=== PATIENT | male | born 1970 | race Caucasian/White ===

== ENCOUNTER 2022-10-25 10:17 | Inpatient (IN) | payer MEDICARE ==
[~2022-10-25 10:17] MED LIST: Iopamidol 300 61% 100 ML VIAL FS ONE
[2022-10-25 11:27] LABS: #Basophils 0.2 10x3/uL (0.0-0.2); #Eosinphils 0.4 10x3/uL (0.0-0.5); #Monocytes 1.8 10x3/uL (0.0-1.1); #Neutrophils 12.6 10x3/uL (1.5-8.4); %Basophils 0.8 % (0.0-2.0); %Eosinophils 2.2 % (0.0-6.0); %Lymphocytes 13.2 % (18.0-47.0); %Neutrophils 71.4 % (40.0-75.0); Hematocrit 37.3 % (38.8-50.0); Hemoglobin 12.5 g/dL (13.5-17.5); Mean Corpuscular HGB CONC 33.5 g/dL (32.0-36.0); Mean Corpuscular Hemoglobin 24.1 pg (27.0-33.0); Mean Corpuscular Volume 71.9 fl (81.2-95.1); Platelet Count 788 10x3/uL (150-450); RBC Distribution Width 12.9 % (11.5-14.5); Red Blood Cell (RBC) Count 5.19 10x6/uL (4.32-5.72); White Blood Cell (WBC) Count 17.7 10x3/uL (3.5-10.5)
[2022-10-25 11:45] LABS: ALT (SGPT) 27 U/L (8-55); AST (SGOT) 21 U/L (5-34); Albumin 3.5 g/dL (3.5-5.0); Alkaline Phosphatase 34 U/L (40-110); Anion Gap 19 mmol/L (10-20); BUN (Urea Nitrogen) 12 mg/dL (8.9-20.6); Calc. Creatinine Clearance 0 mL/min (70-130); Calcium 8.7 mg/dL (7.8-10.44); Carbon Dioxide 22 mmol/L (22-29); Chloride 87 mmol/L (98-107); Estimated GFR 65; Globulin 2.9 g/dL (2.4-3.5); Glucose 131 mg/dL (70-105); Lipase 80 U/L (8-78); Protein, Total 6.4 g/dL (6.0-8.3); Sodium 124 mmol/L (136-145)
[2022-10-25] MEDS ORDERED: Promethazine HCl 25 MG in Sodium Chloride 0.9% 50 ML IVPB SCH (11:45)
[2022-10-25 11:47] LABS: Troponin I Less than 0.010 ng/mL (< 0.028)
[2022-10-25 12:03] LABS: Microcytosis SLIGHT = 6-15 cells (100X) (0-5/hpf); Ovalocytes SLIGHT = 2-5 cells (100X) (0-1/hpf); Platelet Adequacy Comment Appears Increased
[2022-10-25 16:46] LABS: Anion Gap 17 mmol/L (10-20); BUN (Urea Nitrogen) 11 mg/dL (8.9-20.6); Calc. Creatinine Clearance 0 mL/min (70-130); Calcium 8.1 mg/dL (7.8-10.44); Carbon Dioxide 21 mmol/L (22-29); Chloride 92 mmol/L (98-107); Estimated GFR 89; Glucose 92 mg/dL (70-105); Potassium 4.5 mmol/L (3.5-5.1); Sodium 125 mmol/L (136-145)
[2022-10-25] MEDS ORDERED: Acetaminophen 325 MG TAB PO PRN (16:53)
[2022-10-25] MEDS ORDERED: Ondansetron ODT 4 MG TAB PO PRN (16:53)
[2022-10-25] MEDS ORDERED: Promethazine 25 MG TAB PO PRN (17:09)
[2022-10-25] MEDS: Sodium Chloride 0.9% 1,000 ML IV SCH (18:28)
[2022-10-25] MEDS: cefTRIAXone\\ROCEPHIN 2 GM in Sodium Chloride 0.9% 100 ML IVPB SCH (18:28)
[2022-10-25 18:41] VITALS: BMI 21.2
[2022-10-25] MEDS: metroNIDAZOLE 500 MG in Premix Bag 1 BAG IVPB SCH (21:56)
[2022-10-26] MEDS: Sodium Chloride 0.9% 1,000 ML IV SCH ×3 (03:11→22:02)
[2022-10-26 04:06] LABS: #Basophils 0.1 10x3/uL (0.0-0.2); #Eosinphils 1.3 10x3/uL (0.0-0.5); #Monocytes 1.4 10x3/uL (0.0-1.1); #Neutrophils 4.8 10x3/uL (1.5-8.4); %Basophils 0.5 % (0.0-2.0); %Eosinophils 12.6 % (0.0-6.0); %Monocytes 13.2 % (0.0-10.0); %Neutrophils 46.7 % (40.0-75.0); Hematocrit 29.5 % (38.8-50.0); Hemoglobin 9.6 g/dL (13.5-17.5); Mean Corpuscular HGB CONC 32.5 g/dL (32.0-36.0); Mean Corpuscular Hemoglobin 24.1 pg (27.0-33.0); Mean Corpuscular Volume 73.9 fl (81.2-95.1); Mean Platelet Volume 8.8 fl (7.4-10.4); Platelet Count 621 10x3/uL (150-450); Red Blood Cell (RBC) Count 3.99 10x6/uL (4.32-5.72); White Blood Cell (WBC) Count 10.2 10x3/uL (3.5-10.5)
[2022-10-26 04:10] LABS: ALT (SGPT) 16 U/L (8-55); AST (SGOT) 13 U/L (5-34); Albumin 2.6 g/dL (3.5-5.0); Alkaline Phosphatase 23 U/L (40-110); Anion Gap 14 mmol/L (10-20); BUN (Urea Nitrogen) 10 mg/dL (8.9-20.6); Bilirubin, Total 0.5 mg/dL (0.2-1.2); Calc. Creatinine Clearance 102 mL/min (70-130); Calcium 7.6 mg/dL (7.8-10.44); Carbon Dioxide 21 mmol/L (22-29); Chloride 96 mmol/L (98-107); Estimated GFR 95; Globulin 2.5 g/dL (2.4-3.5); Glucose 78 mg/dL (70-105); Potassium 3.3 mmol/L (3.5-5.1); Protein, Total 5.1 g/dL (6.0-8.3); Sodium 128 mmol/L (136-145)
[2022-10-26] MEDS: metroNIDAZOLE 500 MG in Premix Bag 1 BAG IVPB SCH ×3 (05:57→22:02)
[2022-10-26 08:26] LABS: Sodium 129 mmol/L (136-145)
[2022-10-26] MEDS: Pantoprazole 40 MG VIAL IVP SCH (10:12)
[2022-10-26] MEDS ORDERED: Meclizine HCl 25 MG TAB PO PRN (11:26)
[2022-10-26] MEDS ORDERED: Electrolyte Replacement Protocol 1 EACH FS SCH (13:15)
[2022-10-26] MEDS: methylPREDNISolone Sod Succ 40 MG VIAL IVP SCH ×2 (13:38→22:03)
[2022-10-26] MEDS ORDERED: Potassium Chloride 20 MEQ TAB PO SCH (14:00)
[2022-10-26] MEDS: Potassium Chloride 20 MEQ in Premix Bag 1 BAG IVPB SCH ×2 (14:04→16:13)
[2022-10-26 15:31] LABS: Campy jejuni + coli by PCR Negative (Negative); STEC Shiga Toxin 1+2 Negative (Negative); Salmonella spp. by PCR Negative (Negative); Shigella spp + EIEC by PCR Negative (Negative)
[2022-10-26] MEDS: cefTRIAXone\\ROCEPHIN 2 GM in Sodium Chloride 0.9% 100 ML IVPB SCH (16:16)
[2022-10-26 22:24] LABS: Potassium 4.1 mmol/L (3.5-5.1)
[2022-10-27] MEDS: metroNIDAZOLE 500 MG in Premix Bag 1 BAG IVPB SCH ×3 (04:34→21:25)
[2022-10-27] MEDS: methylPREDNISolone Sod Succ 40 MG VIAL IVP SCH ×5 (04:34→21:25)
[2022-10-27 04:40] LABS: Anion Gap 13 mmol/L (10-20); BUN (Urea Nitrogen) 11 mg/dL (8.9-20.6); Calc. Creatinine Clearance 131 mL/min (70-130); Calcium 7.9 mg/dL (7.8-10.44); Carbon Dioxide 19 mmol/L (22-29); Chloride 100 mmol/L (98-107); Estimated GFR 110; Glucose 136 mg/dL (70-105); Potassium 4.4 mmol/L (3.5-5.1); Sodium 128 mmol/L (136-145)
[2022-10-27 04:43] LABS: #Monocytes 0.3 10x3/uL (0.0-1.1); #Neutrophils 6.9 10x3/uL (1.5-8.4); %Basophils 0.3 % (0.0-2.0); %Eosinophils 0.3 % (0.0-6.0); %Lymphocytes 16.7 % (18.0-47.0); %Monocytes 3.2 % (0.0-10.0); %Neutrophils 77.1 % (40.0-75.0); Hematocrit 28.3 % (38.8-50.0); Hemoglobin 9.3 g/dL (13.5-17.5); Mean Corpuscular HGB CONC 32.9 g/dL (32.0-36.0); Mean Corpuscular Hemoglobin 24.3 pg (27.0-33.0); Mean Corpuscular Volume 73.9 fl (81.2-95.1); Mean Platelet Volume 8.9 fl (7.4-10.4); Platelet Count 592 10x3/uL (150-450); RBC Distribution Width 13.1 % (11.5-14.5); Red Blood Cell (RBC) Count 3.83 10x6/uL (4.32-5.72)
[2022-10-27] MEDS: Pantoprazole 40 MG VIAL IVP SCH (09:29)
[2022-10-27] MEDS: Sodium Chloride 0.9% 1,000 ML IV SCH ×2 (09:37→21:25)
[2022-10-27] MEDS: cefTRIAXone\\ROCEPHIN 2 GM in Sodium Chloride 0.9% 100 ML IVPB SCH (18:37)
[2022-10-28 04:16] LABS: Anion Gap 11 mmol/L (10-20); BUN (Urea Nitrogen) 10 mg/dL (8.9-20.6); Calc. Creatinine Clearance 140 mL/min (70-130); Calcium 7.5 mg/dL (7.8-10.44); Carbon Dioxide 17 mmol/L (22-29); Chloride 103 mmol/L (98-107); Estimated GFR 112; Glucose 156 mg/dL (70-105); Potassium 4.2 mmol/L (3.5-5.1); Sodium 127 mmol/L (136-145)
[2022-10-28 05:17] LABS: #Basophils 0.1 10x3/uL (0.0-0.2); #Neutrophils 15.5 10x3/uL (1.5-8.4); %Basophils 0.4 % (0.0-2.0); %Eosinophils 0.2 % (0.0-6.0); %Neutrophils 80.7 % (40.0-75.0); Hematocrit 26.5 % (38.8-50.0); Hemoglobin 8.7 g/dL (13.5-17.5); Mean Corpuscular HGB CONC 32.8 g/dL (32.0-36.0); Mean Corpuscular Hemoglobin 24.6 pg (27.0-33.0); Mean Corpuscular Volume 75.1 fl (81.2-95.1); Mean Platelet Volume 9.4 fl (7.4-10.4); Platelet Count 621 10x3/uL (150-450); RBC Distribution Width 13.1 % (11.5-14.5); Red Blood Cell (RBC) Count 3.53 10x6/uL (4.32-5.72); White Blood Cell (WBC) Count 19.2 10x3/uL (3.5-10.5)
[2022-10-28] MEDS: methylPREDNISolone Sod Succ 40 MG VIAL IVP SCH ×3 (05:39→11:47)
[2022-10-28] MEDS: metroNIDAZOLE 500 MG in Premix Bag 1 BAG IVPB SCH (05:39)
[2022-10-28] MEDS: Sodium Chloride 0.9% 1,000 ML IV SCH (08:51)
[2022-10-28] MEDS: Pantoprazole 40 MG VIAL IVP SCH (08:59)
[2022-10-28] MEDS: Sodium Bicarbonate Tab 325 MG TAB PO SCH ×2 (09:06→15:02)
[2022-10-28 10:01] LABS: Iron 16 ug/dL (65-175); Iron Binding Capacity, Total 194 mcg/dL (261-462)
[2022-10-28] MEDS ORDERED: Iron, Sodium Ferric Gluconate 250 MG in Sodium Chloride 0.9% 250 ML 250 ML IVPB SCH (11:30)
[2022-10-28 12:14] VITALS: BP 104/56; TEMP 97.6
== END 2022-10-28 15:12 | disposition home or self-care (01) | DRG 386 ==
LOC: CSHERS 10:17 → CSHTELE 17:48
PROVIDERS: ADMIT Family Medicine; ATTEND Internal Medicine
DX: K51.90 Ulcerative colitis, unspecified, without complications (principal); E87.1 Hypo-osmolality and hyponatremia; K92.1 Melena; N17.9 Acute kidney failure, unspecified; E87.20 Acidosis, unspecified; E86.0 Dehydration; D75.839 Thrombocytosis, unspecified; K21.9 Gastro-esophageal reflux disease without esophagitis; L40.9 Psoriasis, unspecified; D50.9 Iron deficiency anemia, unspecified; E83.51 Hypocalcemia; E88.09 Other disorders of plasma-protein metabolism, not elsewhere classified
CPT/HCPCS: 36415; 71045; 74177; 80048; 80053; 82040; 82306; 82728; 83540; 83550; 83605; 83690; 83930; 83935; 84484; 85025; 86140; 87040; 87324; 87337; 87449; 87505; 93005; 96361; 96365; C9113; J0696; J2550; J2916; J2920; J3480; J3490; J7050; Q9967